=== PATIENT | female | born 1960 | race African-American/Black ===

== ENCOUNTER 2020-10-05 22:30 | Emergency (ER) | payer OTHER ==
[~2020-10-05] VITALS: Ht 162.6 cm; Wt 63.5 kg
--- NOTE | 2020-10-05 22:52 | NUR ---
URINE COLLECTED AND SENT TO LAB
[2020-10-06] MEDS ORDERED: ONDANSETRON HCL/PF 4 MG/2 ML VIAL IVP ONE (01:00)
[2020-10-06] MEDS ORDERED: MORPHINE SULFATE INJ 2 MG/ML DISP.SYRIN IV ONE ×2 (01:00→08:30)
--- NOTE | 2020-10-06 01:00 | NUR ---
OPEN BED NOW AVAILABLE IN ER. PT MARIS FROM HOME C/O RLQ PAIN X1 WEEK. PT STATES SHE WAS SEEN AT A HOSPITAL IN [place] EARLIER THIS WEEK AND WAS DX WITH OVARIAN CYST. PT AAOX4. NOTED HYPERTENSION, AWARE. RESPIRATIONS EVEN AND UNLABORED. NO ACUTE DISTRESS NOTED AT THIS TIME. WILL CONTINUE TO MONITOR
[2020-10-06] MEDS ORDERED: MORPHINE SULFATE INJ 4 MG/ML DISP.SYRIN ONE (01:10)
[2020-10-06] MEDS ORDERED: ONDANSETRON HCL/PF 4 MG/2 ML VIAL ONE (01:10)
[2020-10-06 01:15] LABS: BASOPHILS # (AUTO) 0.1 /CMM (0.0-0.2); BASOPHILS % (AUTO) 0.9 % (0.0-2.0); EOSINOPHILS % (AUTO) 1.4 % (0.0-6.0); HEMATOCRIT 42 % (33-45); HEMOGLOBIN 13.6 g/dL (11.5-14.8); LYMPHOCYTES # (AUTO) 1.8 /CMM (0.8-4.8); LYMPHOCYTES % (AUTO) 25.9 % (20.0-44.0); MEAN CORPUSCULAR HGB CONC 33 g/dl (31.0-36.0); MEAN CORPUSCULAR VOLUME 83 fL (82-100); MONOCYTES # (AUTO) 0.4 /CMM (0.1-1.30); MONOCYTES % (AUTO) 6.6 % (2.0-12.0); NEUTROPHILS # (AUTO) 4.4 /CMM (1.8-8.9); NEUTROPHILS % (AUTO) 65.2 % (43.0-81.0); PLATELET COUNT (AUTO) 375 /CMM (150-450); RED BLOOD CELL COUNT(AUTO) 5.04 MIL/uL (4.0-5.2); WHITE BLOOD COUNT (AUTO) 6.8 K/uL (4.3-11.0)
[2020-10-06 01:23] LABS: CREATININE 0.8 mg/dL (0.6-1.3); POTASSIUM 3.4 mmol/L (3.5-5.1)
[2020-10-06 01:28] LABS: ALBUMIN 4.3 g/dL (3.4-5.0); BILIRUBIN,DIRECT 0.1 mg/dL (0.0-0.2); BILIRUBIN,TOTAL 0.3 mg/dL (0.2-1.0); CALCIUM, SERUM 9.4 mg/dL (8.5-10.1); TOTAL PROTEIN, SERUM 8.7 g/dL (6.4-8.2)
[2020-10-06] MEDS ORDERED: IOHEXOL-300 100 ML VIAL IV ONE (01:28)
[2020-10-06] MEDS ORDERED: IV NS 0.9% 250 ML IV ONE (01:28)
[2020-10-06] MEDS ORDERED: CT SWABBABLE VALVE TRANS SET 1 EA INFUS.SET MC ONE (01:28)
--- NOTE | 2020-10-06 01:41 | NUR ---
PT RETURNED FROM CT
--- NOTE | 2020-10-06 07:10 | NUR ---
REPORT GIVEN TO DENYS FIGUEROA FOR TERE[facility]
[2020-10-06] MEDS ORDERED: KETOROLAC TROMETHAMINE INJ 30 MG/ML VIAL ONE (08:16)
[2020-10-06] MEDS ORDERED: MORPHINE SULFATE INJ 2 MG/ML DISP.SYRIN ONE (08:16)
--- NOTE | 2020-10-06 08:23 | NUR ---
PATIENT A/OX4, BREATHING EVEN AND UNLABORED, NO SOB NOTED. C/O RIGHT LOWER ABDOMINAL PAIN, DR. LEIGH MADE AWARE AND GAVE ORDER FOR MORPHINE AND TORADOL. PAIN MEDICATIONS GIVEN.
[2020-10-06] MEDS ORDERED: KETOROLAC TROMETHAMINE INJ 30 MG/ML VIAL IV ONE (08:30)
[2020-10-06 09:17] VITALS: BP 124/73
--- NOTE | 2020-10-06 09:18 | NUR ---
IV removed. Catheter intact and site benign. Pressure and 4x4 applied to site. No bleeding noted.Patient discharged to home in stable condition. Written and verbal after care instructions given. Patient verbalizes understanding of instruction.
== END 2020-10-06 09:19 | disposition home or self-care (01) ==
LOC: ER 22:33
DX: R19.03 Right lower quadrant abdominal swelling, mass and lump (principal); R11.2 Nausea with vomiting, unspecified; I10 Essential (primary) hypertension; Z86.73 Personal history of transient ischemic attack (TIA), and cerebral infarction without residual deficits
CPT/HCPCS: 36415; 74177; 80048; 80076; 83690; 85025; 96374; 96375; 96376; 99285; J1885; J2270 ×2; J2405; J7050; Q9967